=== PATIENT | female | born 1990 | race Caucasian/White ===

== ENCOUNTER 2017-01-14 19:55 | Emergency (ER) | payer OTHER ==
[2017-01-14 20:03] VITALS: BP 134/81
--- NOTE | 2017-01-14 20:47 | ERNOTE ---
Dizziness ER Record Date of Service: 01/14/17 Presenting Symptoms: near-fainting Time Seen by Provider: 01/14/17 20:28 Immunizations: IMMUNIZATION HX Immunizations Up to Date Yes History of Influenza Vaccine No Hx Pneumococcal Vaccination No Allergies/Adverse Reactions: Allergies Allergy/AdvReac Type Severity Reaction Status Date / Time No Known Allergies Allergy Verified 01/14/17 20:03 Home Medications: HOME MEDICATIONS Levothyroxine Sodium mcg PO DAILY 05/25/12 [Last Taken Unknown] - History of Present Illness Narrative: This is a 26-year-old female with a history of hypothyroidism pleasantly taking Synthroid and comes to the emergency department complaining of a near syncopal episode. The patient reports she was taking a bath, no hotter than normal this evening. She says shortly after she got out of the bath she went into the living room and while she was there she felt an intense wave of dizziness over take her. She felt extremely hot. She felt like she was about to pass out. She then had an episode of vomiting as well as an episode of diarrhea. Since this has happened she has developed a headache and is also complaining of a bit of a spinning room. She has had vertigo in the past and says that this is definitely not the same. She denies alcohol or drug use. She denies being . She denies chest pain or shortness of breath. She denies any other complaints. Review of Systems - Review of Systems Constitutional: Present: malaise EYE: Present: no symptoms reported ENT: Present: no symptoms reported Respiratory: Present: no symptoms reported Cardiology: Present: no symptoms reported Gastrointestinal/Abdominal: Present: nausea, vomiting, diarrhea Genitourinary: Present: no symptoms reported Musculoskeletal: Present: no symptoms reported Skin: Present: no symptoms reported Neurological: Present: dizziness/light-headedness Endocrine: Present: no symptoms reported Hematologic/Lymphatic: Present: no symptoms reported Psych: Present: no symptoms reported All Other Systems: All systems neg except as marked - Patient's Past Medical History Patient History - Medical: Other Patient History - Cardiac/Respiratory: No pertinent hx Patient History - Cancer: No Hx of Cancer Patient History - Surgical Procedures: Appendectomy, T & A Patient History - Other: None LMP (females 10-50): last week - Social History Living Situations: home Abuse History: No History of abuse Psych History: No pertinent hx Smoking Status: Never smoker Have you smoked in the past 12 months: No Do you dip or chew tobacco: No Alcohol Use: occasionally Drug Use: none - Immunizations Immunizations Up to Date: Yes Hx Pneumococcal Vaccination: No History of Influenza Vaccine: No Physical Exam - Physical Exam General Appearance: Present: wd/wn, alert, no apparent distress Head Exam: Present: normal inspection, no evidence of injury Eye Exam: Normal inspection: bilateral, PERRL: bilateral, Conjunctivae pale: bilateral - slightly pale, Other: bilateral - patient has bilateral non- fatigable nystagmus which greatly decreases after 5-7 saccades Ears, Nose, Throat: Present: normal ENT inspection, normal pharynx Neck: Present: normal inspection, nontender Respiratory: Present: no respiratory distress, normal breath sounds, no accessory muscle use, chest nontender, lungs clear Cardiovascular/Chest: Present: regular rate, rhythm, no murmur, normal peripheral pulses Gastrointestinal/Abdominal: Present: normal bowel sounds, nontender, nondistended, soft Back Exam: Present: normal inspection, normal range of motion, no vertebral tenderness Extremity Exam: Present: normal inspection, normal range of motion, no edema Neurological Exam: Present: alert, oriented, normal mood/affect, no motor/ sensory deficits Skin Exam: Present: normal color, warm/dry Lymphatic Exam: Present: no adenopathy ED Progress - Results and Orders Patient's Lab Results:: I have reviewed the patient's lab results. - Vital Signs Patient's Vital Signs:: I have reviewed the patient's vital signs. Vital Signs: Vital Signs 01/14/17 19:59 Temperature 36.6 C Pulse Rate 73 Respiratory 12 Rate Blood Pressure 134/81 O2 Sat by Pulse 100 Oximetry - Progress/Reassessment Chief Complaint: Dizziness Progress:: Improved Progress Note-Subjective: 01/14/17 21:47 Patient is still having a bit of a "fuzzy head". Dizziness is not as bad. I discussed with her that I have reached the end of my testing. I'm here in the emergency department. Certainly if she still having symptoms she could see her family doctor. A heart arrhythmia would not be expected to cause persistent "funny feeling" in her head. I suspect these are just residual effects of the bolus of adrenaline that her body received as she nearly passed out. Departure Clinical Impression: Near syncope - Departure Disposition: Home self-care Condition: Good Instructions: Near-Syncope, Near-Syncope, [id number] Additional Instructions: As we discussed, all of the tests and studies done here in the emergency department are normal. This does not mean that her symptoms are being caused by something, it simply means that the etiology of her symptoms is not readily apparent here in the emergency department. I suspect she will be much better in the morning. If so you can go about her life as normal without concern. I recommend everyone follow-up with her family doctor in a few days. Certainly she develop new concerning symptoms she should return to the ER. If you have repeated episodes come back to the ER or get in to see her family doctor for further testing. Referrals: Bonnie Francis MD [Primary Care Provider] -
[2017-01-14 20:59] LABS: Hematocrit 37.9 % (37.0-47.0); Hemoglobin 12.6 gm/dL (12.5-16.0); Mean Cell Volume 87.1 fl (78-100); Mean Corpuscular Hgb Conc 33.2 g/dl (32-36); Mean Platelet Volume 10.2 fl (6.0-9.5); Neutrophil # 4.8 K/mm3 (1.3-6.0); Neutrophil % 66.3 % (42-75.0); Platelet Count 200 K/mm3 (150-450); Red Blood Count 4.35 M/mm3 (4.2-5.4); Red Cell Distribution Width 12.5 % (11.5-14.0); White Blood Count 7.2 K/mm3 (4.0-10.5)
[2017-01-14 21:12] LABS: Urine Bilirubin Negative (NEGATIVE); Urine Blood Negative /ul (NEGATIVE); Urine Ketone 5 mg/dL (NEGATIVE); Urine Nitrite Negative (NEGATIVE); Urine Protein Negative (NEGATIVE); Urine Specific Gravity 1.015 SP.GR. (1.005-1.010); Urine Urobilinogen Normal (NORMAL); Urine pH 7.5 pH (5.0-7.0)
[2017-01-14 21:29] LABS: Urine Amorphous Sediment Many - 3+ (NONE-FEW); Urine Appearance Cloudy; Urine Bacteria 1+; Urine Color Yellow; Urine RBC None Seen /hpf (0-5); Urine WBC 0-5 /hpf (0-5)
[2017-01-14 21:33] LABS: Albumin * 3.6 gm/dl (3.4-5.0); Anion Gap 12.2 mmol/L (6.8-13.8); BUN/Creatinine Ratio 10.5 (9.0-21.6); Bilirubin, Total 0.2 mg/dL (0.0-1.1); Carbon Dioxide 28.1 mmol/L (24-32.6); Potassium 3.3 mmol/L (3.4-4.6); Total Protein 7.7 gm/dL (6.2-8.2)
== END 2017-01-14 21:53 | disposition home or self-care (01) ==
LOC: ER 19:55
DX: R55 Syncope and collapse (principal)